=== PATIENT | male | born 1990 | race Caucasian/White ===

== ENCOUNTER 2016-09-28 05:05 | Emergency (ER) | payer SELFPAY | END 2016-09-28 05:17 | disposition left against medical advice (07) | LOC: ER 05:05 | DX: Z53.21 Procedure and treatment not carried out due to patient leaving prior to being seen by health care provider (principal) ==

== ENCOUNTER 2016-10-24 01:18 | Emergency (ER) | payer SELFPAY ==
[~2016-10-24] VITALS: Ht 185.4 cm; Wt 63.5 kg
[2016-10-24 01:35] VITALS: BP 124/74
--- NOTE | 2016-10-24 02:23 | PHYS DOC ---
Past Medical History Past Medical History: No Pertinent History Past Surgical History: No Surgical History Alcohol Use: Occasionally Drug Use: Marijuana, Methamphetamine Adult General Chief Complaint Chief Complaint: Congestion HPI HPI Patient is a 26 year old -year-old gentleman who presents here today secondary to wanting blood work done. Patient reports she is congested and has been having some sharp pain when he coughs. Patient reports he uses methamphetamines. Patient denies any hypertension diabetes liver longer kidney problems. Patient does smoke tobacco does not drink alcohol and smokes marijuana regular basis. Patient denies any other symptomatology. Patient's physical exam was unremarkable. He is alert awake or 3. Patient's cranial nerves to 12 are intact. Patient's repeatable tenderness to palpation to his midsternal region. Patient has a normal exam. Patient's EKG revealed normal sinus rhythm with nonspecific ST-T wave abnormalities. There was no acute pathology. Assessment and plan #1 chest pain does not appear to be cardiac in nature. Patient be discharged home in stable condition. Review of Systems Review of Systems Constitutional: Denies fever or chills [] Eyes: Denies change in visual acuity, redness, or eye pain [] HENT: Denies nasal congestion or sore throat [] All other review systems are negative except as documented in history of present illness portion. Allergies Allergies Allergies Coded Allergies Type Severity Reaction Last Updated Verified No Known Drug Allergies 06/24/13 No Physical Exam Physical Exam Constitutional: Well developed, well nourished, no acute distress, non-toxic appearance. [] HENT: Normocephalic, atraumatic, bilateral external ears normal, oropharynx moist, no oral exudates, nose normal. [] Eyes: PERRLA, EOMI, conjunctiva normal, no discharge. [] Neck: Normal range of motion, no tenderness, supple, no stridor. [] Cardiovascular:Heart rate regular rhythm, Lungs & Thorax: Bilateral breath sounds clear to auscultation [] Abdomen: Bowel sounds normal, soft, no tenderness, no masses, no pulsatile masses. [] Skin: Warm, dry, no erythema, no rash. [] Back: No tenderness, no CVA tenderness. [] Extremities: No tenderness, no cyanosis, no clubbing, ROM intact, no edema. [] Neurologic: Alert and oriented X 3, normal motor function, normal sensory function, no focal deficits noted. [] Psychologic: Affect normal, judgement normal, mood normal. [] Current Patient Data Vital Signs Vital Signs Date Time Temp Pulse Resp B/P (MAP) Pulse Ox O2 Delivery O2 Flow Rate FiO2 10/24/16 01:35 98.6 82 20 97 Room Air 98.6 EKG EKG [] Radiology/Procedures Radiology/Procedures [] Course & Med Decision Making Course & Med Decision Making Pertinent Labs and Imaging studies reviewed. (See chart for details) [] Dragon Disclaimer Dragon Disclaimer This electronic medical record was generated, in whole or in part, using a voice recognition dictation system. Departure Departure Impression: Primary Impression: Methamphetamine abuse Additional Impression: Nonspecific chest pain Disposition: HOME, SELF-CARE Condition: IMPROVED Referrals: NO PCP (PCP) Patient Instructions: Alcohol and Drug Addiction, Finding Treatment, Chest Pain (Nonspecific), Methamphetamine Abuse, Complications Problem Qualifiers CELIA OTOOLE MD October 24, 2016 02:23
--- NOTE | 2016-10-24 06:39 | EKG ---
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
== END 2016-10-24 02:46 | disposition home or self-care (01) ==
LOC: ER 01:18
DX: R07.9 Chest pain, unspecified (principal); F15.10 Other stimulant abuse, uncomplicated; F12.10 Cannabis abuse, uncomplicated; F17.210 Nicotine dependence, cigarettes, uncomplicated
CPT/HCPCS: 93005; 99283-25